=== PATIENT | female | born 1935 | race Two or more races ===

== ENCOUNTER 2019-05-16 20:17 | Inpatient (IN) | payer MEDICARE, OTHER ==
[~2019-05-16] VITALS: Ht 165.1 cm; Wt 47.6 kg
--- NOTE | 2019-05-16 20:17 | NUR ---
C/O SI WITH PLAN TO OD ON VICODIN PER KAITLYNN REPORT. ON 5150 HOLD BY [employer], PT AWAKE, ALERT, PT TO BED 7, -SOB, NAD NOTED, VSS, PENDING MD [place]
[2019-05-16 21:01] LABS: BASOPHILS # (AUTO) 0.1 /CMM (0.0-0.2); EOSINOPHILS % (AUTO) 1.2 % (0.0-6.0); HEMATOCRIT 40 % (33-45); HEMOGLOBIN 13.4 g/dL (11.5-14.8); LYMPHOCYTES # (AUTO) 1.9 /CMM (0.8-4.8); LYMPHOCYTES % (AUTO) 25.8 % (20.0-44.0); MEAN CORPUSCULAR HGB CONC 33 g/dl (31.0-36.0); MEAN CORPUSCULAR VOLUME 97 fL (82-100); MONOCYTES # (AUTO) 0.5 /CMM (0.1-1.30); MONOCYTES % (AUTO) 7.6 % (2.0-12.0); NEUTROPHILS # (AUTO) 4.6 /CMM (1.8-8.9); NEUTROPHILS % (AUTO) 64.4 % (43.0-81.0); PLATELET COUNT (AUTO) 229 /CMM (150-450); RED BLOOD CELL COUNT(AUTO) 4.13 MIL/uL (4.0-5.2); WHITE BLOOD COUNT (AUTO) 7.2 K/uL (4.3-11.0)
[2019-05-16 21:23] LABS: APPEARANCE,URINE CLEAR (CLEAR); BILIRUBIN,URINE NEGATIVE (NEGATIVE); BLOOD, URINE TRACE-INTA Ery/uL (NEGATIVE); COLOR,URINE YELLOW (YELLOW); KETONES,URINE NEGATIVE (NEGATIVE); LEUKOCYTE ESTERASE ,URINE NEGATIVE (NEGATIVE); NITRITE, URINE NEGATIVE (NEGATIVE); PROTEIN,URINE NEGATIVE (NEGATIVE); UGLUCOSE NEGATIVE (NEGATIVE); UROBILINOGEN,URINE 0.2 EU/dL (0.2)
[2019-05-16 21:42] LABS: CALCIUM, SERUM 9.4 mg/dL (8.5-10.1); CARBON DIOXIDE 30 mmol/L (21-32); CHLORIDE 100 mmol/L (98-107); CREATININE 0.9 mg/dL (0.6-1.3); GLUCOSE 109 mg/dL (74-106); POTASSIUM 3.8 mmol/L (3.5-5.1); SODIUM SERUM 141 mmol/L (136-145); UREA NITROGEN, BLOOD 19 mg/dL (7-18)
[2019-05-16 21:48] LABS: ALANINE AMINOTRANSFERASE 28 U/L (12-78); ALBUMIN 4.1 g/dL (3.4-5.0); ALKALINE PHOSPHATASE 91 U/L (46-116); ASPARTATE AMINOTRANSFERASE 25 U/L (15-37); BILIRUBIN,DIRECT 0.1 mg/dL (0.0-0.2); BILIRUBIN,TOTAL 0.4 mg/dL (0.2-1.0); TOTAL PROTEIN, SERUM 8.2 g/dL (6.4-8.2)
[2019-05-16 22:02] LABS: BACTERIA,URINE None seen /HPF (None Seen); RBC,URINE 0-2 /HPF (0-2); SQUAMOUS EPITHELIAL CELL,UR None Seen /HPF (None Seen); WBC,URINE NONE SEEN /HPF (0-3)
[2019-05-16 22:10] VITALS: BP 155/72
--- NOTE | 2019-05-16 22:13 | NUR ---
REPORT GIVEN TO URSZULA SAGASTUME FOR BROOKE; PT TRANSPORTED TO GPS
[2019-05-16 22:55] LABS: ALCOHOL, BLOOD < 3 mg/dL (0-0)
[2019-05-16 22:56] LABS: ACETAMINOPHEN 0 ug/ml (10-30); SALICYLATE 0.6 mg/dL (2.8-20.0)
[2019-05-16] MEDS ORDERED: TEMAZEPAM 15 MG CAPSULE PO PRN (23:00)
[2019-05-16] MEDS ORDERED: LORAZEPAM 1 MG TABLET PO PRN (23:00)
[2019-05-16] MEDS ORDERED: BLOOD SUGAR DIAGNOSTIC 1 EACH STRIP IN ONE (23:00)
[2019-05-16] MEDS ORDERED: MAG HYDROX/AL HYDROX/SIMETH 30 ML UDC PO PRN (23:00)
[2019-05-16] MEDS ORDERED: MAGNESIUM HYDROXIDE 30 ML UDC PO PRN (23:00)
[2019-05-16] MEDS ORDERED: ACETAMINOPHEN 325 MG TABLET PO PRN (23:00)
--- NOTE | 2019-05-16 23:05 | NUR ---
GPS INPATIENT PHARMACIST NOTES PATIENT IS A 83 YEAR OLD WHITE FEMALE ADMITTED FROM HOME TO [facility] ER (BROUGHT IN TO [facility] ER BY [employer] OFFICERS) & THEN TO GPS UNIT, PLACED ON A 5150 HOLD FOR PSYCHOSIS NOS. PER HOLD, PT. 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 PT. STATED SHE HAD VICODIN IN HER POSSESSION TO OVERDOSE. IMPULSIVE BEHAVIOR WITH POOR INSIGHT & JUDGEMENT. LIVES ALONE. PLACED ON 5150 HOLD DTS FOR SAFETY & FURTHER EVALUATION. UPON FACE TO FACE ASSESSMENT, PATIENT IS ALERT AND ORIENTED X 2-3, CONFUSED/ANXIOUS, BLUNTED AFFECT, EASILY IRRITABLE, DENIES SI/HI AT THIS TIME, WANTS TO GO HOME & NO PLAN TO KILL/HURT HERSELF AT THIS TIME. VSS. NO ACUTE DISTRESS NOTED. NO C/O PAIN VERBALIZED. PT. IS UNDER THE PSYCHIATRIC CARE OF DR. RIVAS & THE MEDICAL CARE OF DR. SORENSEN. BELONGINGS CHECKED & INVENTORIED. UNABLE TO SIGN CONSENTS DUE TO CONFUSION/ANXIOUSNESS. PATIENT IS AMBULATORY, STEADY GAIT BUT VERBALIZED THAT SHE TRIPS OVER SOMETIMES WHILE WALKING. PT WILL BE ORDERED FOR EVAL. PATIENT'S RIGHTS HANDBOOK GIVEN. MD MADE AWARE. PT. SAID THAT SHE ONLY TAKES CALCIUM SUPPLEMENT AT HOME, NO OTHER MEDS. NO FAMILY INFO GIVEN TO NOTIFY ABOUT THE ADMISSION. LIVES ALONE. (HAS NO FAMILY OR RELATIVES, PER PATIENT). ALL NEEDS ATTENDED TO & MET. SAFETY MEASURES MAINTAINED. BED ALARM ON, BED IN LOW/LOCKED POSITION. WILL CONTINUE TO MONITOR PT. Q15 MINUTES FOR SAFETY AND BEHAVIOR.
[2019-05-16] MEDS ORDERED: CALC600T12 PO (23:19)
--- NOTE | 2019-05-17 00:59 | NUR ---
GPS RN NOTE PATIENT IS SLEEPING COMFORTABLY AT THIS TIME. SLEEPING MEDICINE WAS OFFERED TO THE PATIENT WHEN PT. WAS AWAKE BUT PATIENT STATED THAT SHE DOES NOT TAKE ANY SLEEPING PILL AT HOME, SO SHE WOULD TRY TO SLEEP WITHOUT TAKING ANY MEDICINE. PATIENT FELL ASLEEP AFTER THAT & SLEEPING AT THIS TIME.
--- NOTE | 2019-05-17 06:07 | NUR ---
GPS RN NOTE PATIENT SLEPT FOR 5 HOURS, KEPT REFUSING SLEEPING MEDICINE X3 AT NIGHT, STATED," SHE DOES NOT TAKE ANY SLEEPING MEDICINE AT HOME & SHE DOES NOT NEED ONE HERE." KEEPS REPEATING THAT SHE WANTS TO GO HOME. INFORMED THE PATIENT THAT SHE NEEDS TO BE SEEN BY THE PSYCHIATRIST TODAY & SHE CAN DISCUSS HER CONCERN WITH HER PSYCHIATRIST. WILL CONTINUE TO MONITOR FOR ANY CHANGES.
[2019-05-17 06:34] LABS: ALBUMIN 3.3 g/dL (3.4-5.0); BILIRUBIN,TOTAL 0.6 mg/dL (0.2-1.0); CALCIUM, SERUM 8.6 mg/dL (8.5-10.1); CREATININE 0.8 mg/dL (0.6-1.3); POTASSIUM 3.6 mmol/L (3.5-5.1); TOTAL PROTEIN, SERUM 6.7 g/dL (6.4-8.2)
--- NOTE | 2019-05-17 07:00 | NUR ---
MRSA SWAB WAS COLLECTED & SENT TO THE LAB.
--- NOTE | 2019-05-17 07:39 | NUR ---
GPS RN NOTE CALLED ROB ANDREWS & INFORMED ABOUT NEW ADMISSION TO THE UNIT UNDER HIS CARE, LEFT CALL BACK NUMBER WELL. ALSO ENDORSED TO AM RN TO RECONCILE VITAMIN SUPPLEMENT OF THE PATIENT WITH ZAY STROUD.
--- NOTE | 2019-05-17 07:53 | NUR ---
SANITATION DIRECTOR/MED RECON PATIENT REPORTED "NO ACTIVE PRESCRIPTION". STATED "I ONLY TAKE SUPPLEMENTS, IT'S A LONG LIST AND I CAN JUST TAKE THEM AGAIN WHEN I GET HOME". EXPLAINED THE IMPORTANCE OF COLLECTING INFORMATION, STILL REFUSED. PATIENT RIGHTS RESPECTED. CN MADE AWARE.
[2019-05-17 08:00] VITALS: BP 117/57
--- NOTE | 2019-05-17 13:23 | NUR ---
INITIAL DISCHARGE PLAN: Patient wishes to return back home [address] [facility] [address] [place] [phone] . SW will help form a safe and proper discharge in collaboration with .
[2019-05-17 16:00] VITALS: BP 138/68
[2019-05-17 20:14] VITALS: BP 122/68
[2019-05-17] MEDS ORDERED: TRAZODONE 50 MG TABLET PO SCH (22:00)
--- NOTE | 2019-05-17 22:00 | NUR ---
GPS RN NOTES: PER PT REQUEST TO CHECK HER BLOOD TYPE. ORDERS NOTED AND CARRIED OUT. CONTINUE TO MONITOR. Addendum: 05/18/19 at 0241 by CELESTINO LUNA RN GPS RN NOTES: PATIENT REQUESTED TO DR RIVAS TO CHECK HER BLOOD TYPE. DR RIVAS ENDORSED TO THE NURSE TO ORDER TYPE AND SCREEN TEST. ORDERED NOTED AND CARRIED OUT. CONTINUE TO MONITOR.
[2019-05-18 08:00] VITALS: BP 103/55
--- NOTE | 2019-05-18 11:06 | NUR ---
DISCHARGE NOTE: Pt will be discharged at 12:00pm via [facility] home [address] [facility] [address] [facility] [address] . Pt has no family to notify. Pts mood is euthymic with congruent affect. Pt denied visual/auditory hallucinations and denied suicidal/homicidal ideation. Pt was given a referral to Psychiatrist: Dr. Holland [address] [phone] . SW faxed clinical information to and pt was encouraged to follow up on Wednesday05/19/19 at 9:00am. Pt was also given a referral to [facility] Address: [address] [place] [id number] . The multidisciplinary exit care form was done, printed, signed, and given to the patient.
--- NOTE | 2019-05-18 13:37 | NUR ---
HEAD BOYS GOLF COACH NOTE: PATIENT IS A 83 YEAR OLD FEMALE DISCHARGED HOME TO [address] [facility] [address] [facility] [phone] . PATIENT IS IN STABLE CONDITION. VSS. NO ACUTE DISTRESS NOTED. NO COMPLAINTS. COMPLIANT WITH MEDICATION MANAGEMENT. COOPERATIVE WITH PLAN OF CARE. PSYCHIATRIC TREATMENT PLANS MET. MEDICAL TREATMENT PLANS DEFERRED FOR CONTINUAL MONITORING. DENIES SI/HI VAH AT THE TIME OF DISCHARGE. SKIN INTACT. EDUCATED PATIENT ABOUT AFTERCARE WITH COPY PROVIDED. RETURNED PERSONAL BELONGINGS TO PATIENT. MEDICATIONS RECONCILED WITH DR RIVAS AND DR GOEL ALONG WITH PSYCHIATRIC DISCHARGE ORDERS. DISCHARGE PAPERWORK SIGNED. FOR FOLLOW UP WITH PSYCHIATRIST DR [facility] [id number] [facility] [address] AND [facility] [address] [facility] [address] WITHIN 1 WEEK. PATIENT LEFT THE [facility] GPS VIA [facility] AT 1300.
== END 2019-05-18 13:00 | disposition home or self-care (01) | DRG 881 ==
LOC: ER 20:19 → GPS 21:33
PROVIDERS: ADMIT Psychiatry & Neurology Psychiatry; ATTEND Nurse Practitioner Acute Care
DX: F32.9 Major depressive disorder, single episode, unspecified (principal); F29 Unspecified psychosis not due to a substance or known physiological condition
CPT/HCPCS: 36415; 80048-TC; 80053-TC; 80061-TC; 80076-TC; 80305; 81000-TC; 82962-TC; 85025-TC; 86850-TC; 87081-TC; 97116-TC; 97530-TC; G0480

== ENCOUNTER 2022-05-04 14:08 | Emergency (ER) | payer MEDICARE, OTHER ==
[~2022-05-04] VITALS: Ht 162.6 cm; Wt 43.1 kg
--- NOTE | 2022-05-04 14:10 | NUR ---
KEREN 839 FROM A STORE; PER EMS REPORT, PT WAS FEELING WEAK AND DIZZY WHEN STANDING UP AND AN ASSOCIATE CALLED EMS. TO ER BED 9.
--- NOTE | 2022-05-04 14:35 | NUR ---
DR RAMIREZ AT BEDSIDE W/ PT
--- NOTE | 2022-05-04 14:40 | NUR ---
TECH AT BEDSIDE FOR EKG
[2022-05-04 15:03] LABS: BASOPHILS % (AUTO) 0.6 % (0.0-2.0); HEMATOCRIT 42 % (33-45); HEMOGLOBIN 13.6 g/dL (11.5-14.8); LYMPHOCYTES # (AUTO) 0.8 K/uL (0.8-4.8); LYMPHOCYTES % (AUTO) 10.4 % (20.0-44.0); MEAN CORPUSCULAR HGB CONC 32 g/dl (31.0-36.0); MEAN CORPUSCULAR VOLUME 95 fL (82-100); MONOCYTES # (AUTO) 1.1 K/uL (0.1-1.30); MONOCYTES % (AUTO) 13.8 % (2.0-12.0); NEUTROPHILS # (AUTO) 5.8 K/uL (1.8-8.9); NEUTROPHILS % (AUTO) 75.2 % (43.0-81.0); PLATELET COUNT (AUTO) 172 K/uL (150-450); RED BLOOD CELL COUNT(AUTO) 4.39 MIL/uL (4.0-5.2); WHITE BLOOD COUNT (AUTO) 7.7 K/uL (4.3-11.0)
[2022-05-04 15:35] LABS: CARBON DIOXIDE 26 mmol/L (21-32); CHLORIDE 98 mmol/L (98-107); CREATININE 1.6 mg/dL (0.6-1.3); GLUCOSE 126 mg/dL (74-106); POTASSIUM 3.7 mmol/L (3.5-5.1); SODIUM SERUM 132 mmol/L (136-145); UREA NITROGEN, BLOOD 20 mg/dL (7-18)
[2022-05-04 15:41] LABS: ALANINE AMINOTRANSFERASE 28 U/L (12-78); ALBUMIN 3.8 g/dL (3.4-5.0); ALKALINE PHOSPHATASE 76 U/L (46-116); ASPARTATE AMINOTRANSFERASE 34 U/L (15-37); BILIRUBIN,DIRECT 0.1 mg/dL (0.0-0.2); BILIRUBIN,TOTAL 0.5 mg/dL (0.2-1.0); TOTAL PROTEIN, SERUM 7.7 g/dL (6.4-8.2)
--- NOTE | 2022-05-04 15:58 | NUR ---
PT TAKEN TO RADIOLOGY FOR CT
[2022-05-04] MEDS: IV NS 0.9% 1,000 ML IV ONE (16:00)
--- NOTE | 2022-05-04 16:05 | NUR ---
PT RETURNED FROM RADIOLOGY
--- NOTE | 2022-05-04 16:40 | NUR ---
urine sample collected and sent to lab
[2022-05-04 17:47] LABS: BILIRUBIN,URINE NEGATIVE (NEGATIVE); COLOR,URINE YELLOW (YELLOW); LEUKOCYTE ESTERASE ,URINE NEGATIVE (NEGATIVE); NITRITE, URINE NEGATIVE (NEGATIVE); PROTEIN,URINE TRACE mg/dl (NEGATIVE); UGLUCOSE NEGATIVE (NEGATIVE); UROBILINOGEN,URINE 0.2 EU/dL (0.2)
--- NOTE | 2022-05-04 17:50 | NUR ---
IV removed. Catheter intact and site benign. Pressure and 4x4 applied to site. No bleeding noted.
[2022-05-04 18:08] VITALS: BP 105/56
--- NOTE | 2022-05-04 18:08 | NUR ---
Patient discharged to home in stable condition. Written and verbal after care instructions given. Patient verbalizes understanding of instruction.
--- NOTE | 2022-05-04 18:08 | NUR ---
LESLEY VOUCHER PROVIDED TO PT.
[2022-05-04 18:53] LABS: BACTERIA,URINE None seen /HPF (None Seen); MUCUS,URINE Few /LPF (None Seen); WBC,URINE 0-2 /HPF (0-3)
== END 2022-05-04 18:29 | disposition home or self-care (01) ==
LOC: ER 14:17
DX: R42 Dizziness and giddiness (principal); H61.23 Impacted cerumen, bilateral
CPT/HCPCS: 99285; 96360; 70450; 71045; 69209; 85025; 80048; 80076; 81001; 36415; 84484; 93005; J7030

== ENCOUNTER 2023-12-20 00:29 | Inpatient (IN) | payer OTHER ==
[~2023-12-20] VITALS: Ht 162.6 cm; Wt 43.5 kg
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
--- NOTE | 2023-12-20 01:53 | NUR ---
semiconductor lab technician at bedside
--- NOTE | 2023-12-20 01:54 | NUR ---
er tech at bedside
[2023-12-20 02:10] LABS: BASOPHILS # (AUTO) 0.1 K/uL (0.0-0.2); BASOPHILS % (AUTO) 0.9 % (0.0-2.0); EOSINOPHILS # (AUTO) 0.1 K/uL (0.0-0.7); EOSINOPHILS % (AUTO) 0.7 % (0.0-6.0); HEMATOCRIT 40 % (33-45); HEMOGLOBIN 13.2 g/dL (11.5-14.8); LYMPHOCYTES # (AUTO) 0.8 K/uL (0.8-4.8); LYMPHOCYTES % (AUTO) 9.4 % (20.0-44.0); MEAN CORPUSCULAR HEMOGLOBIN 33 PG (26.0-33.0); MEAN CORPUSCULAR HGB CONC 33 g/dl (31.0-36.0); MEAN CORPUSCULAR VOLUME 98 fL (82-100); MONOCYTES # (AUTO) 0.3 K/uL (0.1-1.30); MONOCYTES % (AUTO) 3.8 % (2.0-12.0); NEUTROPHILS # (AUTO) 7.3 K/uL (1.8-8.9); NEUTROPHILS % (AUTO) 85.2 % (43.0-81.0); PLATELET COUNT (AUTO) 157 K/uL (150-450); RED BLOOD CELL COUNT(AUTO) 4.04 MIL/uL (4.0-5.2); RED CELL DISTRIBUTION WIDTH 14.4 % (11.5-15.0); WHITE BLOOD COUNT (AUTO) 8.6 K/uL (4.3-11.0)
[2023-12-20 02:17] LABS: CALCIUM, SERUM 9.2 mg/dL (8.5-10.1); CARBON DIOXIDE 25 mmol/L (21-32); CHLORIDE 102 mmol/L (98-107); GLUCOSE 121 mg/dL (74-106); POTASSIUM 3.9 mmol/L (3.5-5.1); SODIUM SERUM 139 mmol/L (136-145); UREA NITROGEN, BLOOD 23 mg/dL (7-18)
--- NOTE | 2023-12-20 02:27 | NUR ---
TROPONIN 969
[2023-12-20 02:29] LABS: ALANINE AMINOTRANSFERASE 31 U/L (12-78); ALBUMIN 3.4 g/dL (3.4-5.0); ALKALINE PHOSPHATASE 90 U/L (46-116); ASPARTATE AMINOTRANSFERASE 41 U/L (15-37); BILIRUBIN,TOTAL 0.4 mg/dL (0.2-1.0); NT-PRO BNP 666 pg/mL (0-125); TOTAL PROTEIN, SERUM 6.6 g/dL (6.4-8.2)
--- NOTE | 2023-12-20 02:30 | NUR ---
INSERTED IV CANNULA G 18 R AC
--- NOTE | 2023-12-20 02:37 | NUR ---
TROMMEL TENDER AT BEDSIDE
[2023-12-20] MEDS ORDERED: ASPIRIN 325 MG TABLET ONE (02:47)
[2023-12-20] MEDS: ASPIRIN 325 MG TABLET PO ONE (03:00)
--- NOTE | 2023-12-20 03:45 | NUR ---
COVID SWAB TAKEN SENT TO LAB
--- NOTE | 2023-12-20 04:05 | NUR ---
transferred patient to room 308
--- NOTE | 2023-12-20 04:30 | NUR ---
report given to FARHAN SAGASTUME
--- NOTE | 2023-12-20 04:50 | NUR ---
incoming freight clerk notes Received Pt from TANIKA Lewis. Pt is alert and orientedX4 and hard of hearing. On room air. No SOB. No S/s of distress noted. Pt denies any chest pain. VS is stable and documented. IV site at R forearm # 18 is clean, intact and flushes well. Tele monitor SR with bigeminy and BBB hr 92. Pt's belonging was checked by TANKIA Gallagher. Skin assessment is done and perfromed. Skin is intact. Pt is able to ambulates with a steady gait.Received ordered from Dr. Chavez. Reorient Pt to the room and the use of call light. Pt verbalize understanding. safety precautions is maintained. bed at low position, brakes locked, side rails upX2, hob elevated, bed alarm is on and call light is within reach. will continue to monitor.
[2023-12-20 05:00] VITALS: BP 147/64; TEMP 98.2; O2SAT 96
[2023-12-20] MEDS ORDERED: ONDANSETRON HCL/PF 4 MG/2 ML VIAL IV PRN (05:30)
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
[2023-12-20] MEDS: IV NS 0.9% 1,000 ML BAG IV PRN (06:10)
--- NOTE | 2023-12-20 06:14 | NUR ---
RN notes Informed and notify Dr Chavez regarding Pt's troponin 969. Dr. Chavez ordered to let cardiology Dr Chino know. Charge nurse is aware and informed. will continue to monitor.
--- NOTE | 2023-12-20 06:30 | NUR ---
RN closing notes Pt is resting in bed comfortbaly. Pt is alert and orientedX4 and hard of hearing. On room air. No SOB. No S/S of distress noted. Tele monitor showed SR with bigeminy hr at 73. IV site at RFA# 22 is clean, intact and infuisng well ns@ 75 ml/hr. Pt is npo. Kept Pt clean, dry and comfortbale. safety precautions is maintained. bed at low position, brakes locked, side rails upX2, hob elevated, bed alarm is on and call light is within reach. will endorse to am nurse for BROOKE.
[2023-12-20 07:00] VITALS: BP 122/76; TEMP 97.5; O2SAT 94
--- NOTE | 2023-12-20 07:02 | NUR ---
RN notes Per Dr. Chavez to contact Dr. Chino. Informed and notify Dr. Chino regarding Pt's troponin 969. awaitng for response. Endorse to Renee SAGASTUME for BROOKE.
--- NOTE | 2023-12-20 07:30 | NUR ---
ANIMATION ARTIST OPENING NOTES RECEIVED PT LYING DOWN IN BED, SPONTANEOUS EYE MOVEMENT AND VERBALLY RESPONSIVE, A/O X 4, HARD OF HEARING AND NO LIMITATIONS ON MOVEMENT. ON ROOM AIR WITH SATURATIONS OF 98%. HAS ON AND OFF NO PRODUCTIVE COUGH WITH NO RESP AND CARDIAC DISTRESS. WITH RFA 22G IV SITE INFUSING PATENT WITH IVF OF NS AT 75 MLS/HR. ON TELE MONITORING WITH SR BIGEMINY AT HR OF 76 BPM. WITH BRP AND IN MINIMAL TO NO ASSIST. PT IS ON NPO EXCEPT MEDS. FOR EDWIN OF ABDOMEN TODAY. TROPONIN LEVEL IS 969. MD AND CN IS AWARE. WILL MONITOR CLOSELY. FALL AND SAFETY MEASURES ARE IN PLACE: BED ON LOW LOCKED POSITION, SIDERAILS RAISED, ALARM ON AND CALL LIGHT WITHIN EASY REACH AT ALL TIMES. POC CONTINUED TODAY.
[2023-12-20 07:32] LABS: BASOPHILS # (AUTO) 0.1 K/uL (0.0-0.2); BASOPHILS % (AUTO) 0.7 % (0.0-2.0); EOSINOPHILS # (AUTO) 0.1 K/uL (0.0-0.7); EOSINOPHILS % (AUTO) 0.7 % (0.0-6.0); HEMATOCRIT 41 % (33-45); HEMOGLOBIN 13.5 g/dL (11.5-14.8); LYMPHOCYTES # (AUTO) 1.2 K/uL (0.8-4.8); LYMPHOCYTES % (AUTO) 13.5 % (20.0-44.0); MEAN CORPUSCULAR HEMOGLOBIN 32 PG (26.0-33.0); MEAN CORPUSCULAR HGB CONC 33 g/dl (31.0-36.0); MEAN CORPUSCULAR VOLUME 99 fL (82-100); MONOCYTES # (AUTO) 0.6 K/uL (0.1-1.30); MONOCYTES % (AUTO) 6.2 % (2.0-12.0); NEUTROPHILS % (AUTO) 78.9 % (43.0-81.0); PLATELET COUNT (AUTO) 166 K/uL (150-450); RED BLOOD CELL COUNT(AUTO) 4.16 MIL/uL (4.0-5.2); WHITE BLOOD COUNT (AUTO) 8.9 K/uL (4.3-11.0)
[2023-12-20 07:48] LABS: CALCIUM, SERUM 9.7 mg/dL (8.5-10.1); CARBON DIOXIDE 22 mmol/L (21-32); CHLORIDE 106 mmol/L (98-107); CREATININE 0.8 mg/dL (0.6-1.3); GLUCOSE 94 mg/dL (74-106); SODIUM SERUM 139 mmol/L (136-145); UREA NITROGEN, BLOOD 19 mg/dL (7-18)
[2023-12-20 08:05] LABS: CHOLESTEROL 200 mg/dL (<200); HDL CHOLESTEROL 81 mg/dL (40-60); LDL 93 mg/dL (0-99); TRIGLYCERIDES 107 mg/dL (30-150)
[2023-12-20] MEDS ORDERED: ALEN70TA80 PO (08:14)
--- NOTE | 2023-12-20 08:35 | NUR ---
RN NOTES RECEIVED A CALL FROM OBB GARZA RIVETER PNEUMATIC REPORTING FOR CRITICAL LAB RESULT; 2ND TROPONIN IS 2,084. DR MOORE IS ON THE UNIT AND CHARGE NURSE ARE INFORMED IMMEDIATELY. WILL MONITOR PT CLOSELY.
[2023-12-20] MEDS ORDERED: HEPARIN INFUSION/D5W 500 ML IV PRN (09:00)
[2023-12-20] MEDS: ASPIRIN EC 81 MG TABLET.DR PO SCH (09:54)
[2023-12-20] MEDS: AZITHROMYCIN 250 MG TABLET PO SCH (09:57)
[2023-12-20] MEDS: CEFTRIAXONE 1 G in IV D5W 50 ML IV SCH (09:57)
[2023-12-20] MEDS: METOPROLOL TARTRATE 50 MG TABLET PO SCH (09:58)
[2023-12-20] MEDS: ENOXAPARIN SODIUM 40 MG/0.4 ML DISP.SYRIN SQ SCH (10:56)
--- NOTE | 2023-12-20 11:50 | NUR ---
RN NOTES RECEIVED A CALL FROM BOB GARZA THERAPY COORDINATOR REPORTING FOR CRITICAL LAB RESULT; 3rd TROPONIN IS 1,941. DR MOORE UNIT AND CHARGE NURSE ARE INFORMED IMMEDIATELY. WILL MONITOR PT CLOSELY.
--- NOTE | 2023-12-20 15:45 | NUR ---
RN NOTES DR. MOORE MADE A TELEPHONE ORDER OF: STOP THE PATIENTS IVF. AND NPO DIET TO CARDIAC LOW SALT LOW FAT DIET. ORDERS READ BACK. ORDERS CARRIED OUT.
[2023-12-20 16:00] VITALS: BP 150/53; TEMP 98.1; O2SAT 91
--- NOTE | 2023-12-20 19:16 | NUR ---
MANAGER MAC CLOSING NOTES PATIENT IS LYING DOWN IN BED, SPONTANEOUS EYE MOVEMENT AND VERBALLY RESPONSIVE, A/O X 4, HARD OF HEARING AND NO LIMITATIONS ON MOVEMENT. ON ROOM AIR WITH SATURATIONS OF 97%. HAS ON AND OFF NON PRODUCTIVE COUGH WITH NO RESP AND CARDIAC DISTRESS. WITH RFA 22G IV SITE INFUSING PATENT AND FLUSHING WELL. ON TELE MONITORING WITH SR BIGEMINY AT HR OF 63 BPM. WITH BRP AND IN MINIMAL TO NO ASSIST. PT IS ON CARDIAC DIET. ALL DUE MEDS GIVEN. ALL NEEDS ATTENDED. FALL AND SAFETY MEASURES ARE IN PLACE: BED ON LOW LOCKED POSITION, SIDERAILS RAISED, ALARM ON AND CALL LIGHT WITHIN EASY REACH AT ALL TIMES. POC ENDORSED TO PM RN.
--- NOTE | 2023-12-20 19:30 | NUR ---
DIRECTOR OF REHABILITATION AND WELLNESS OPENING NOTES RECEIVED PATIENT AWAKE AND WALKING IN THE ROOM. PATIENT IS A/O TIMES 2-3 WITH EPISODES OF CONFUSION. NO PAIN NOTED. NO SOB NOTED. NO DISTRESS NOTED. NO IV ACCESS . PATIENT REMOVED IV ACCESS. PATIENT IS ANXIOUS AND WANTS TO GO HOME. EDUCATE THE PATIENT THE NEED TO STAY IN HOSPITAL TO GET PROPER TREATMENT. PATIENT VERBALIZED UNDERSTANDING. ALL NEEDS ATTENDED. ON ROOM AIR AND TOLERATING WELL. ALL SAFETY MEASURES IN PLACE. BED LOCKED IN THE LOWEST POSITION. CALL LIGHT AND TABLE IN EASY REACH. SIDE RAILS UP TIMES 2. PLAN OF CARE IS ONGOING.
[2023-12-20 20:00] VITALS: BP 126/57; TEMP 97.6; O2SAT 96
[2023-12-20] MEDS: ATORVASTATIN 10 MG TABLET PO SCH (21:23)
[2023-12-21] VITALS: BP 105/65; TEMP 97.8; O2SAT 95
[2023-12-21 04:00] VITALS: BP 126/58; TEMP 98.1; O2SAT 96
--- NOTE | 2023-12-21 06:27 | NUR ---
DIRECTOR OF CATH LAB CLOSING NOTES PATIENT RESTING ON BED. PATIENT IS A/O TIMES 2-3 WITH EPISODES OF CONFUSION. REORIENT THE PATIENT. NO PAIN NOTED. NO SOB NOTED. NO DISTRESS NOTED. IV ACCESS ON THE RFA # 20 INTACT AND SL. ALL NEEDS ATTENDED. ON ROOM AIR AND TOLERATING WELL. ALL SAFETY MEASURES IN PLACE. BED LOCKED IN THE LOWEST POSITION. CALL LIGHT AND TABLE IN EASY REACH. SIDE RAILS UP TIMES 2. PLAN OF CARE IS ONGOING. WILL ENDORSE FOR BROOKE.
[2023-12-21 06:35] LABS: BASOPHILS # (AUTO) 0.1 K/uL (0.0-0.2); BASOPHILS % (AUTO) 0.7 % (0.0-2.0); EOSINOPHILS # (AUTO) 0.1 K/uL (0.0-0.7); EOSINOPHILS % (AUTO) 1.2 % (0.0-6.0); HEMATOCRIT 43 % (33-45); HEMOGLOBIN 14.1 g/dL (11.5-14.8); LYMPHOCYTES # (AUTO) 1.3 K/uL (0.8-4.8); MEAN CORPUSCULAR HEMOGLOBIN 33 PG (26.0-33.0); MEAN CORPUSCULAR HGB CONC 33 g/dl (31.0-36.0); MEAN CORPUSCULAR VOLUME 99 fL (82-100); MONOCYTES # (AUTO) 0.8 K/uL (0.1-1.30); MONOCYTES % (AUTO) 7.7 % (2.0-12.0); NEUTROPHILS # (AUTO) 7.9 K/uL (1.8-8.9); NEUTROPHILS % (AUTO) 77.4 % (43.0-81.0); PLATELET COUNT (AUTO) 160 K/uL (150-450); WHITE BLOOD COUNT (AUTO) 10.2 K/uL (4.3-11.0)
[2023-12-21 07:25] LABS: ALANINE AMINOTRANSFERASE 40 U/L (12-78); ALBUMIN 2.9 g/dL (3.4-5.0); ALKALINE PHOSPHATASE 110 U/L (46-116); ASPARTATE AMINOTRANSFERASE 44 U/L (15-37); BILIRUBIN,TOTAL 0.9 mg/dL (0.2-1.0); CARBON DIOXIDE 20 mmol/L (21-32); CHLORIDE 106 mmol/L (98-107); GLUCOSE 129 mg/dL (74-106); PHOSPHORUS 3.7 mg/dL (2.5-4.9); SODIUM SERUM 138 mmol/L (136-145); TOTAL PROTEIN, SERUM 6.2 g/dL (6.4-8.2); UREA NITROGEN, BLOOD 33 mg/dL (7-18)
--- NOTE | 2023-12-21 07:25 | NUR ---
RN OPENING NOTE Received pt in bed, awake. A/O x 2-3, able to make needs known, no c/o pain/discomfort at this time. On room air, tolerating well. IV access in RFA #20g, sl. On tele monitor with current reading of SR-65. Safety measures maintained. Will continue with plan of care.
[2023-12-21 08:36] LABS: MAGNESIUM 2.2 mg/dL (1.8-2.4)
[2023-12-21 08:40] VITALS: BP 108/60; TEMP 97.5; O2SAT 97
--- NOTE | 2023-12-21 09:00 | NUR ---
RN NOTE Pt refused tele monitor, aware.
[2023-12-21] MEDS: ENOXAPARIN SODIUM 30 MG/0.3 ML DISP.SYRIN SQ SCH (10:29)
--- NOTE | 2023-12-21 18:53 | NUR ---
RN CLOSING NOTE Pt resting in bed. A/O x 3, forgetful, no c/o pain/discomfort at this time. On room air, tolerating well. IV access in RFA #20g, sl. Needs attended. Safety measures maintained. Will endorse sharon to sap bw architect.
--- NOTE | 2023-12-21 19:25 | NUR ---
SEAM RUBBER NOTES RECEIVED SITTING ON BED,A/O X2-3,FORGETFUL,REFUSED TELE MONITOR, AWARE.NPO EXCEPT MEDS,GOING FOR LEFT HEART CATH,POSSIBLE PCI IN THE MORNING,CONSENT ON CHART SIGNED BY PATIENT.SALINE LOCK RIGHT FOREARM #20 INTACT AND PATENT.ABLE TO AMBULATE WITH ASSIST,WITH UNSTEADY GAIT.ENCOURAGED TO CALL NURSE IF SHE NEEDS ASSISTANCE TO USE THE BATHROOM.CALL LIGHT IN REACH.WILL CONTINUE TO MONITOR STATUS.
[2023-12-21 20:00] VITALS: BP 114/50; TEMP 97.8; O2SAT 96
[2023-12-21 21:16] VITALS: BP 114/50; TEMP 97.9; O2SAT 96
[2023-12-22] VITALS: BP 110/59; TEMP 98; O2SAT 94
[2023-12-22 01:18] VITALS: BP 110/59; TEMP 98; O2SAT 94
[2023-12-22 04:00] VITALS: BP 108/59; TEMP 98.8; O2SAT 96
[2023-12-22 04:45] VITALS: BP 108/59; TEMP 98.8; O2SAT 96
[2023-12-22] MEDS: ACETAMINOPHEN 325 MG TABLET PO PRN (06:20)
--- NOTE | 2023-12-22 06:20 | NUR ---
ANTIQUE FURNITURE REPAIRER NOTES C/O ABDOMINAL DISCOMFORTS.MEDICATED WITH TYLENOL 650MG PO WITH SIPS OF WATER.NPO EXCEPT MEDS GOING FOR LEFT HEART CATH TODAY,CONSENT ON CHART.WILL ENDORSE TO DAY NURSE FOR BROOKE.
[2023-12-22 06:25] LABS: BASOPHILS % (AUTO) 0.4 % (0.0-2.0); EOSINOPHILS # (AUTO) 0.2 K/uL (0.0-0.7); EOSINOPHILS % (AUTO) 1.9 % (0.0-6.0); HEMATOCRIT 41 % (33-45); HEMOGLOBIN 13.7 g/dL (11.5-14.8); LYMPHOCYTES # (AUTO) 1.1 K/uL (0.8-4.8); LYMPHOCYTES % (AUTO) 11.2 % (20.0-44.0); MEAN CORPUSCULAR HEMOGLOBIN 33 PG (26.0-33.0); MEAN CORPUSCULAR HGB CONC 33 g/dl (31.0-36.0); MEAN CORPUSCULAR VOLUME 99 fL (82-100); MONOCYTES # (AUTO) 0.7 K/uL (0.1-1.30); MONOCYTES % (AUTO) 7.6 % (2.0-12.0); NEUTROPHILS # (AUTO) 7.5 K/uL (1.8-8.9); NEUTROPHILS % (AUTO) 78.9 % (43.0-81.0); PLATELET COUNT (AUTO) 144 K/uL (150-450); RED BLOOD CELL COUNT(AUTO) 4.17 MIL/uL (4.0-5.2); RED CELL DISTRIBUTION WIDTH 14.1 % (11.5-15.0); WHITE BLOOD COUNT (AUTO) 9.5 K/uL (4.3-11.0)
[2023-12-22 06:53] LABS: CALCIUM, SERUM 8.6 mg/dL (8.5-10.1); CARBON DIOXIDE 22 mmol/L (21-32); CHLORIDE 107 mmol/L (98-107); GLUCOSE 111 mg/dL (74-106); POTASSIUM 4.2 mmol/L (3.5-5.1); SODIUM SERUM 140 mmol/L (136-145); UREA NITROGEN, BLOOD 32 mg/dL (7-18)
[2023-12-22 07:00] VITALS: BP 98/61; TEMP 98.2; O2SAT 96
--- NOTE | 2023-12-22 07:08 | NUR ---
BAR TACKER SEWING MACHINE OPENING NOTES RECEIVED PATIENT IN BED, AWAKE. A/O X2-3-HARD OF HEARING, CONFUSED AND FORGETFUL. ABLE TO MAKE NEEDS KNOWN. NO SIGNS OF ACUTE DISTRESS NOTED. ON ROOM AIR, TOLERATED WELL. NO SOB, BREATHING EVEN AND UNLABORED. PATIENT WAS SUPPOSED TO BE UNDER TELEMETRY MONITORING BUT PATIENT IS REFUSING-MD AWARE. WITH IV ACCESS ON RIGHT FOREARM #20G-SALINE LOCKED; INTACT, PATENT AND FLUSHES WELL. PATIENT DENIES PAIN AT THIS TIME. SAFETY MEASURES IN PLACE. BED IN LOW AND LOCKED POSITION. CALL LIGHT AND TABLE WITHIN REACH. SIDE RAILS UP X2. HOB ELEVATED. WILL CONTINUE WITH PLAN OF CARE.
--- NOTE | 2023-12-22 07:13 | NUR ---
RN NOTES PER NIGHT NURSE GILDA, PATIENT IS FOR LEFT HEART CARDIAC CATH AND PCI BUT CLINICAL REHAB SPECIALIST MIGHT BE DOWN AND PATIENT NEED TO BE TRANSFERRED TO [facility] IF NEEDED.
[2023-12-22 08:23] LABS: INR 1.04 (0.91-1.10)
--- NOTE | 2023-12-22 13:30 | NUR ---
RN NOTES PATIENT WAS PICKED UP BY 2 CARDIAC CHILD CARE TEAM LEAD NURSES IN STABLE CONDITION. PATIENT IS FOR LEFT HEART CARDIAC CHILD CARE TEAM LEAD AND PCI.
[2023-12-22] MEDS ORDERED: IV SET PRIMARY PUMP SET 1 EA INFUS.SET MC ONE (13:58)
[2023-12-22] MEDS ORDERED: IV NS 0.9% 500 ML IV ONE (13:58)
[2023-12-22] MEDS ORDERED: IODIXANOL 150 ML IV ONE (13:59)
[2023-12-22] MEDS ORDERED: LIDOCAINE HCL/MPF 1% 30 ML VIAL IJ ONE (13:59)
[2023-12-22] MEDS ORDERED: NITROGLYCERIN IN 5 % DEXTROSE 250 ML IV ONE (14:06)
[2023-12-22] MEDS ORDERED: FENTANYL PF 100MCG/2ML AMPUL ONE (14:39)
[2023-12-22] MEDS ORDERED: MIDAZOLAM HCL 2 MG/2ML VIAL ONE (14:39)
[2023-12-22] MEDS ORDERED: IODIXANOL 320MG/ML 50 ML IV ONE (14:55)
[2023-12-22] MEDS ORDERED: HEPARIN SODIUM, PORCINE 1,000 UNIT/ML VIAL ONE (14:57)
[2023-12-22] MEDS ORDERED: ATROPINE SULFATE 1 MG/10 ML DISP.SYRIN ONE (15:02)
[2023-12-22] MEDS ORDERED: TICAGRELOR 90 MG TABLET ONE (15:06)
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
[2023-12-22] MEDS: TICAGRELOR 90 MG TABLET PO SCH (16:36)
[2023-12-22] MEDS: HYDROCODONE/APAP 5/325MG TABLET PO PRN (17:21)
[2023-12-22] MEDS ORDERED: METOPROLOL SUCCINATE 25 MG TAB.SR.24H PO SCH (18:00)
[2023-12-22] MEDS ORDERED: CLONIDINE HCL 0.1 MG TABLET PO PRN (18:00)
--- NOTE | 2023-12-22 18:00 | NUR ---
agricultural equipment test engineer note removed 3 ml of air from right wrist band no bleeding
--- NOTE | 2023-12-22 18:30 | NUR ---
GUN WELDER NOTE REMOVED 3 ML OF AIR FROM THE RIGHT WRIST BAND NO BLEEDING
--- NOTE | 2023-12-22 19:00 | NUR ---
AREA INTELLIGENCE TECHNICIAN NOTE REMOVED 3 ML FROM THE R WRIST BAND NO BLEEDING
--- NOTE | 2023-12-22 19:30 | NUR ---
REAL ESTATE AGENT/BROKER NOTES STILL IN ICU,ROOM 262-1,RECOVERING FROM LEFT HEART CATH
--- NOTE | 2023-12-22 19:30 | NUR ---
SCHOOL CHILD CARE ATTENDANT OPENING NOTES RECEIVED PATIENT IN BED, AWAKE. A/O X2-3-HARD OF HEARING, CONFUSED AND FORGETFUL. ABLE TO MAKE NEEDS KNOWN. NO SIGNS OF ACUTE DISTRESS NOTED. ON ROOM AIR, TOLERATED WELL. NO SOB, BREATHING EVEN AND UNLABORED. WITH IV ACCESS ON RIGHT FOREARM #20G-SALINE LOCKED; INTACT, PATENT AND FLUSHES WELL. PATIENT DENIES PAIN AT THIS TIME. SAFETY MEASURES IN PLACE. BED IN LOW AND LOCKED POSITION. CALL LIGHT AND TABLE WITHIN REACH. WILL CONT WITH PLAN OF CARE.
[2023-12-22 20:00] VITALS: BP 122/67; TEMP 98.4; O2SAT 98
--- NOTE | 2023-12-22 22:38 | NUR ---
3ml of air removed from TR band every hour since 19:00. currently all air removed. No s/s of bleeding or hematoma. Will continue to monitor. Addendum: 12/22/23 at 2355 by SUE HAWLEY RN CORRECTION: BRUISE NOTED UNDER THE SITE OF TR BAND. DR GORE NOTIFIED. Addendum: 12/23/23 at 0021 by SUE HAWLEY RN BRUISE HAS GOOD PULSE, GOOD MOBILITY. NO C/O OF PAIN AT THE SITE. VS STABLE. OK TO REMAIN TELE STATUS. Addendum: 12/23/23 at 0051 by SUE HAWLEY RN picture taken and sent to dr. Gore.
--- NOTE | 2023-12-23 00:51 | NUR ---
rn note transferred pt to rm 308-1 and report given to Kristen RN for continuity of care.
--- NOTE | 2023-12-23 00:55 | NUR ---
TRANSPORT TECHNICIAN NOTES RECEIVED FROM ICU VIA ACLS PROTOCOL,S/P HEART CATH,WITH 3 STENT PLACEMENT.RIGHT WRIST TR BAND SITE WITH BRUISES NOTED COVERED WITH TEGADERM.NO ACTIVE BLEEDING NOTED.WILL CONTINUE TO MONITOR.
[2023-12-23 01:00] VITALS: BP 111/63; TEMP 98.1; O2SAT 95
--- NOTE | 2023-12-23 01:00 | NUR ---
BOSS MINER NOTES PER REPORT BY ICU NURSE SUE,NO HEAVY LIFTING,AND LEVATE RIGHT ARM ON PILLOWS NOTED.
[2023-12-23 04:00] VITALS: BP 131/84; TEMP 97.8; O2SAT 97
--- NOTE | 2023-12-23 06:37 | NUR ---
AUTOMOTIVE PRODUCTION WORKER NOTES SB WITH PVC'S-50,LAYING ON BED,GET UP ON AND OFF,DRESSING CHANGED DONE ON TR BAND SITE,NO BLEEDING NOTED.NO FALL,NO INJURY,CONFUSED AT TIMES AND FORGETFUL,OTHERWISE NO DISTRESS.
[2023-12-23 06:58] LABS: BASOPHILS % (AUTO) 0.6 % (0.0-2.0); EOSINOPHILS # (AUTO) 0.1 K/uL (0.0-0.7); EOSINOPHILS % (AUTO) 1.4 % (0.0-6.0); HEMATOCRIT 43 % (33-45); HEMOGLOBIN 14.2 g/dL (11.5-14.8); LYMPHOCYTES # (AUTO) 0.8 K/uL (0.8-4.8); LYMPHOCYTES % (AUTO) 8.6 % (20.0-44.0); MEAN CORPUSCULAR HEMOGLOBIN 33 PG (26.0-33.0); MEAN CORPUSCULAR HGB CONC 33 g/dl (31.0-36.0); MEAN CORPUSCULAR VOLUME 100 fL (82-100); MONOCYTES # (AUTO) 0.5 K/uL (0.1-1.30); MONOCYTES % (AUTO) 5.6 % (2.0-12.0); NEUTROPHILS # (AUTO) 7.5 K/uL (1.8-8.9); NEUTROPHILS % (AUTO) 83.8 % (43.0-81.0); PLATELET COUNT (AUTO) 166 K/uL (150-450); RED BLOOD CELL COUNT(AUTO) 4.36 MIL/uL (4.0-5.2); WHITE BLOOD COUNT (AUTO) 8.9 K/uL (4.3-11.0)
--- NOTE | 2023-12-23 07:06 | NUR ---
WIRE STRAIGHTENER OPENING NOTES RECEIVED PATIENT IN BED, ASLEEP BUT EASY TO AWAKEN. A/O X2-3-HARD OF HEARING, CONFUSED AND FORGETFUL. ABLE TO MAKE NEEDS KNOWN. NO SIGNS OF ACUTE DISTRESS NOTED. ON ROOM AIR, TOLERATED WELL. NO SOB, BREATHING EVEN AND UNLABORED. ON TELEMETRY MONITORING WITH CURRENT READING OF SINUS BRADYCARDIA WITH HEART RATE OF 47BPM. WITH IV ACCESS ON RIGHT FOREARM #20G-SALINE LOCKED; INTACT, PATENT AND FLUSHES WELL. NOTED WITH BRUISE ON POST TR-BAND SITE. PATIENT DENIES PAIN AT THIS TIME. SAFETY MEASURES IN PLACE. BED IN LOW AND LOCKED POSITION. CALL LIGHT AND TABLE WITHIN REACH. SIDE RAILS UP X2. HOB ELEVATED. WILL CONTINUE WITH PLAN OF CARE.
[2023-12-23 07:35] LABS: CALCIUM, SERUM 8.8 mg/dL (8.5-10.1); CARBON DIOXIDE 24 mmol/L (21-32); CHLORIDE 105 mmol/L (98-107); GLUCOSE 87 mg/dL (74-106); POTASSIUM 4.1 mmol/L (3.5-5.1); SODIUM SERUM 140 mmol/L (136-145); UREA NITROGEN, BLOOD 23 mg/dL (7-18)
[2023-12-23 08:00] VITALS: BP 118/73; TEMP 98.2; O2SAT 98
[2023-12-23] MEDS ORDERED: AMLODIPINE BESYLATE 5 MG TABLET PO SCH ×2 (08:46→09:00)
[2023-12-23] MEDS ORDERED: Aspirin Ec PO (08:50)
[2023-12-23] MEDS ORDERED: TICA90TA PO (08:50)
[2023-12-23] MEDS ORDERED: ATOR10TA PO (08:50)
[2023-12-23 11:57] VITALS: BP 133/77; TEMP 98.6; O2SAT 100
--- NOTE | 2023-12-23 17:29 | NUR ---
PRINTED CIRCUIT BOARDS PINNER NOTES PATIENT WAS SEEN AND ORDERED FOR DISCHARGE BY DR. OSCAR LINN. PATIENT WILL BE DISCHARGE TO HOME. PATIENT IS A/O X3-CONFUSED AT TIMES. NO SIGNS OF ACUTE DISTRESS NOTED. PATIENT REFUSED FACILITY PLACEMENT. PATIENT SIGNED THE DISCHARGE FORMS. EXPLAINED AND INSTRUCTED PATIENT WITH HER HOME MEDICATIONS-PATIENT VERBALIZED UNDERSTANDING. BELONGINGS WERE ACCOUNTED FOR-FORM SIGNED AND FILED TO CHART. NAME WRISTBAND AND IV ACCESS WERE REMOVED. PATIENT WAS PICKED UP BY EMT IN STABLE CONDITION. FRIEND-XENIA REYES([phone]) INFORMED OF THE DISCHARGE WELL. CHARGE NURSE AND MD MADE AWARE OF THE DISCHARGE.
== END 2023-12-23 17:23 | disposition home health service (06) | DRG 321 ==
LOC: ER 00:30 → TELE 04:25 → ICU 12-22 15:56 → TELE 12-23 00:37
PROVIDERS: ADMIT Internal Medicine; ATTEND Internal Medicine
PROC: 027135Z Dilation of Coronary Artery, Two Arteries with Two Drug-eluting Intraluminal Devices, Percutaneous Approach (ICD-10-PCS; principal; 2023-12-22)
PROC: 4A023N7 Measurement of Cardiac Sampling and Pressure, Left Heart, Percutaneous Approach (ICD-10-PCS; 2023-12-22)
PROC: B211YZZ Fluoroscopy of Multiple Coronary Arteries using Other Contrast (ICD-10-PCS; 2023-12-22)
DX: I21.4 Non-ST elevation (NSTEMI) myocardial infarction (principal); E43 Unspecified severe protein-calorie malnutrition; J18.9 Pneumonia, unspecified organism; Z68.1 Body mass index [BMI] 19.9 or less, adult; I42.9 Cardiomyopathy, unspecified; I25.10 Atherosclerotic heart disease of native coronary artery without angina pectoris; Z79.83 Long term (current) use of bisphosphonates; E78.5 Hyperlipidemia, unspecified; I49.3 Ventricular premature depolarization; I08.0 Rheumatic disorders of both mitral and aortic valves
CPT/HCPCS: 36415; 71045-TC; 80048-TC; 80053-TC; 80061-TC; 83735-TC; 83880; 84100-TC; 84443-TC; 84484-TC; 85025-TC; 85347; 85610-TC; 85730-TC; 93307-TC; A4223; G0378; J0461; J0696; J1644; J1650; J2250; J3010; J3490; J7030; J7040; J7060; Q9967